=== PATIENT | female | born 1980 | race Two or more races ===

== ENCOUNTER → 2020-10-15 09:55 | Outpatient (CLI) | payer OTHER | END | disposition home or self-care (01) | LOC: NUCLEAR 09:45 | PROVIDERS: ATTEND Surgery | DX: M85.80 Other specified disorders of bone density and structure, unspecified site (principal) | CPT/HCPCS: 78306; A9503 ==

== ENCOUNTER 2020-10-24 06:23 | Day surgery (SDC) | payer OTHER | END 2020-10-24 17:40 | disposition home or self-care (01) | LOC: CIR.AMB 06:23 | PROVIDERS: ATTEND Surgery | DX: D05.11 Intraductal carcinoma in situ of right breast (principal); Z90.13 Acquired absence of bilateral breasts and nipples | CPT/HCPCS: 19340; 19303; 38525; 38792; C1789 ==

== ENCOUNTER 2023-01-31 10:53 | Outpatient (CLI) | payer OTHER | END 2023-01-31 11:00 | disposition home or self-care (01) | LOC: SONOGRAMA 10:53 | PROVIDERS: ATTEND Pathology Anatomic Pathology & Clinical Pathology | DX: E04.2 Nontoxic multinodular goiter (principal); D34 Benign neoplasm of thyroid gland ==